=== PATIENT | female | born 1965 | race Caucasian/White ===

== ENCOUNTER 2016-10-29 10:49 | Emergency (ER) | payer BC ==
[2016-10-29 11:06] VITALS: TEMP 100.6; O2SAT 97
--- NOTE | 2016-10-29 11:20 | ED.PDOC ---
History of Present Illness - General Chief Complaint: Abdominal Pain Stated Complaint: abdominal pain Time Seen by Provider: 10/29/16 11:12 Source: patient Exam Limitations: no limitations - History of Present Illness Initial Comments: Patient presents with two days of LLQ pain. Constant, non-radiating, no exacerbating nor alleviating factors. Associated with fever. No hematochezia nor diarrhea. Had one previous episode one year ago that was diagnosed as diverticulitis. Has had a hysterectomy but no other abdominal nor pelvic surgeries. No other complaints. Timing/Duration: other - two days Severity: moderate Improving Factors: nothing Worsening Factors: nothing Associated Symptoms: fever/chills Allergies/Adverse Reactions: Allergies Penicillins Allergy (Verified 10/29/16 11:06) Home Medications: Ambulatory Orders Ciprofloxacin [Cipro] 500 mg PO BID #20 tab 10/29/16 Metronidazole 500 mg PO Q8HR #30 tab 10/29/16 Review of Systems - Review of Systems Constitutional: States: see HPI EENTM: States: see HPI Respiratory: States: no symptoms reported Cardiology: States: no symptoms reported Gastrointestinal/Abdominal: States: see HPI Genitourinary: States: no symptoms reported Musculoskeletal: States: no symptoms reported Skin: States: no symptoms reported Neurological: States: no symptoms reported Endocrine: States: no symptoms reported Hematologic/Lymphatic: States: no symptoms reported Past Medical History (General) - Patient Medical History Hx Gastroesophageal Reflux: Yes - diverticulitis Surgical History: tonsillectomy, Hysterectomy, other - Vaccination History Hx Tetanus, Diphtheria Vaccination: No Hx Influenza Vaccination: No - Social History Hx Tobacco Use: No Hx Alcohol Use: No Hx Substance Use: No Hx Substance Use Treatment: No Hx Depression: No - Activities of Daily Living Hospice Agency (if applicable):: None - Female History Patient is a Female of Child Bearing Age (10 -59 yrs old): No Patient : No Family Medical History - Family History Mother Family History: Unknown Physical Exam - Physical Exam General Appearance: Alert Ears, Nose, Throat: normal ENT inspection Neck: non-tender, full range of motion, supple Respiratory: lungs clear Cardiovascular/Chest: regular rate, rhythm Gastrointestinal/Abdominal: normal bowel sounds, non tender, soft Back Exam: no CVA tenderness Skin Exam: normal color Lymphatic: no adenopathy Progress - Progress Progress: 10/29/16 11:54 Laboratory Tests 10/29/16 11:30 WBC 17.9 H RBC 4.10 L Hgb 12.5 Hct 37.0 MCV 90.2 MCH 30.4 MCHC 33.7 RDW 12.5 Plt Count 311 MPV 7.5 Absolute Neuts (auto) 14.70 H Absolute Lymphs (auto) 1.50 Absolute Monos (auto) 1.60 H Absolute Eos (auto) 0.00 Absolute Basos (auto) 0.00 Neutrophils % 82.0 H Lymphocytes % 8.4 L Monocytes % 9.1 H Eosinophils % 0.2 L Basophils % 0.3 Sodium 136 Potassium 3.6 Chloride 102 Carbon Dioxide 25 Anion Gap 12.6 BUN 15 Creatinine 0.72 BUN/Creatinine Ratio 20.8 H Random Glucose 125 H Serum Osmolality 274.3 L Calcium 8.9 Total Bilirubin 0.7 AST 67 H ALT 63 H Alkaline Phosphatase 71 Serum Total Protein 7.2 Albumin 4.0 Globulin 3.2 Albumin/Globulin Ratio 1.3 Lipase 29 WBC increased. Patient is not in severe pain and is non-tender to palpation so peritonitis and acute ascending cholangitis are unlikely. LFTs wnl. Patient not at high risk for vascular disease and cannot be . Given her history of divirticulitis, this would fit the clinical picture the best. Will discharge with ciprofloxacin 500 mg po bid x 10 days and metronidazole 500 mg po q8H x 10 days with orders to follow up with her pcp this week or soon if symptoms progress. Departure - Departure Clinical Impression: Diverticulitis Disposition: Discharge to Home or Self Care Condition: Good Departure Forms: ED Discharge - Pt. Copy, Patient Portal Self Enrollment Instructions: DI for Abdominal Pain-Adult Diet: resume usual diet Activity: increase activity as tolerated Prescriptions: Metronidazole 500 mg PO Q8HR #30 tab Ciprofloxacin [Cipro] 500 mg PO BID #20 tab Home Medications: Ambulatory Orders Ciprofloxacin [Cipro] 500 mg PO BID #20 tab 10/29/16 Metronidazole 500 mg PO Q8HR #30 tab 10/29/16 Additional Instructions: Take medications as prescribed. Return to ER or clinic for worsening symptoms. Follow up with your primary care physician this week.
[2016-10-29 12:15] VITALS: BP 129/72
== END 2016-10-29 12:15 | disposition home or self-care (01) ==
LOC: ER 10:49
DX: K57.92 Diverticulitis of intestine, part unspecified, without perforation or abscess without bleeding (principal); Z88.0 Allergy status to penicillin

== ENCOUNTER → 2016-12-02 | Outpatient (CLI) | payer BC | END | disposition home or self-care (01) | LOC: LAB.O 07:19 | PROVIDERS: ATTEND Nurse Practitioner Family | DX: Z00.00 Encounter for general adult medical examination without abnormal findings (principal); I10 Essential (primary) hypertension ==

== ENCOUNTER → 2018-03-01 | Outpatient (CLI) | payer BC | LOC: LAB.O 06:46 | PROVIDERS: ATTEND Nurse Practitioner Family | DX: B96.81 Helicobacter pylori [H. pylori] as the cause of diseases classified elsewhere (principal) ==

== ENCOUNTER → 2019-07-25 | Outpatient (CLI) | payer BC | LOC: LAB.O 11:19 | PROVIDERS: ATTEND Registered Nurse General Practice | DX: K57.32 Diverticulitis of large intestine without perforation or abscess without bleeding (principal) ==